=== PATIENT | male | born 1965 | race Caucasian/White ===

== ENCOUNTER 2024-12-07 06:32 | Day surgery (SDC) | payer BC ==
[2024-12-06 09:01] VITALS: BMI 21.2
[2024-12-07 08:01] LABS: ABSOLUTE IMMATURE GRANULOCYTES 0.01 x10^3/uL (0.0-0.031); BASOPHILS # 0.03 x10^3/uL (0.01-0.08); EOSINOPHIL % 2.7 % (0.8-7.0); EOSINOPHILS # 0.08 x10^3/uL (0.04-0.54); HEMATOCRIT 45.7 % (40.1-51.0); HEMOGLOBIN 14.9 g/dL (13.7-17.5); MCHC 32.6 g/dl (32.3-36.5); MEAN CELL VOLUME 88.6 fl (79.0-92.2); MEAN PLT VOLUME 10.5 fl (9.4-12.4); MONOCYTE % 10.2 % (5.3-12.2); PLATELET COUNT 178 x10^3/uL (163-337); RDW 13.6 % (12.2-16.1)
[2024-12-07 08:31] LABS: ALBUMIN 3.9 g/dl (3.4-5.0); CALCIUM 9.7 mg/dL (8.5-10.1)
[2024-12-07 08:35] LABS: CREATININE 0.9 mg/dL (0.55-1.3)
[2024-12-07 08:36] LABS: BILIRUBIN,TOTAL 0.8 mg/dL (0.2-1); TOT PROT 6.4 g/dl (6.4-8.2)
[2024-12-07] MEDS ORDERED: FENTANYL CITRATE/PF 50 MCG/ML VIAL ONE (09:20)
[2024-12-07] MEDS ORDERED: MIDAZOLAM HCL 2 MG/2 ML SINGLE DOSE VIAL ONE (09:20)
[2024-12-07] MEDS: SODIUM CHLORIDE 500 ML IV ONE (09:45)
[2024-12-07 10:43] VITALS: RESP 16; TEMP 97.8
[2024-12-07 14:42] VITALS: BP 116/60; PULSE 50
== END 2024-12-07 12:30 | disposition home or self-care (01) ==
LOC: JRADIR 06:32
PROVIDERS: ATTEND Internal Medicine Hematology & Oncology
PROC: 0QB33ZX Excision of Left Pelvic Bone, Percutaneous Approach, Diagnostic (ICD-10-PCS; principal; 2024-12-07)
DX: D72.819 Decreased white blood cell count, unspecified (principal)
CPT/HCPCS: 20225; 36415; 77012-TC; 80053; 85025; 85610; 88300-TC